=== PATIENT | male | born 1995 | race Caucasian/White ===

== ENCOUNTER 2016-07-12 13:36 | Inpatient (IN) | payer OTHER ==
--- NOTE | ~2016-07-12 | CO ---
Unit #: [id number] #: [id number] Patient: TARUN VELASQUEZ [id number] [address] [place], [place] [address] [id number] I MR#: [id number] NAME: TARUN VELASQUEZ ROOM: 469 Age: 21 Sex: M Admission Date: 07/12/2016 : 1995 Attending Physician: Gonzalo Navarro M.D. Primary Care Physician: Jaleel Otero Jr., A.P.R.N. Consultation Date: 07/13/2016 CONSULTATION REPORT BRIEF SUMMARY The patient is a 21-year-old white male who presented complaining of approximately 3 days of nausea, decreased oral intake and vomiting. He has had a similar episode of this approximately 2 years ago that required admission and spontaneous resolved without any surgical intervention. 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 He denies any hematemesis. Last bowel movement was approximately 3 to 4 days ago. He has had no fever, no chills and at present, after his NG tube was placed, he has no nausea and no abdominal pain. PAST MEDICAL HISTORY AND SERIOUS ILLNESSES As noted above. 1. He has had a history of gastroschisis. 2. History of myotonic dystrophy. PAST SURGICAL HISTORY Three abdominal surgeries as noted above for repair of his gastroschisis and reduction of the bowel. MEDICATIONS Vitamin D weekly. ALLERGIES 1. Morphine. 2. Fentanyl. TRANSFUSION No history of transfusion reaction in the past. IMMUNIZATIONS Up to date. FAMILY HISTORY Noncontributory. SOCIAL HISTORY The patient is single. Nonsmoker, nondrinker. Has a normal good appetite with no recent weight change. He has always been thin most of his life. REVIEW OF SYSTEMS A 12-system review has been performed which is unremarkable except that in the present illness. Unit #: [id number] #: [id number] Patient: TARUN VELASQUEZ PHYSICAL EXAMINATION VITAL SIGNS: Afebrile. Vital signs are normal. GENERAL: Well-developed, thin 21-year-old white male in no acute distress. HEENT: Unremarkable. NECK: Supple. CHEST: Equal bilateral expansion with bilateral equal breath sounds. LUNGS: Clear bilaterally. HEART: Regular rhythm without murmurs, gallops. ABDOMEN: Soft, scaphoid without mass or organomegaly. No gross abdominal distention. No guarding or rebound. Active bowel sounds present. No evidence of ascites or hernias. There is a large scar in the central portion of his abdomen from his previous gastroschisis surgery. EXTREMITIES: Full range of motion without limitation. There is no evidence of peripheral edema. BACK: No CVA tenderness. NEUROLOGIC: He does have some tonic and clonic contraction of the muscles at times. DIAGNOSTIC STUDIES LABORATORY: Values are basically normal. BUN was minimally elevated at 26 with a normal serum creatinine. IMAGING: CT scan revealed evidence of probable small bowel obstruction in the proximal jejunum with the colon shifted in the left of the abdomen. IMPRESSION The patient has recurrent small bowel obstruction secondary to adhesions. He is much better after placement of NG tube. The plan will be to observe him for the next 24 hours and repeat his x-rays and make a decision whether he will need surgery or not. This has been discussed with him and his mother and they agree with this approach. Dictated by... Artem Duggan Jr., M.Gray. IVETH/ernesto TD: 07/13/2016 22:04 JOB #: [id number] CONSULTATION REPORT Page 1 of 1 X Artem Duggan MD X CONSULTATION REPORT
--- NOTE | ~2016-07-12 | DS ---
Unit #: [id number] #: [id number] Patient: TARUN VELASQUEZ [id number] [place], [place] [address] [id number] I MR#: [id number] NAME: TARUN VELASQUEZ. ROOM: 469 Age: 21 Sex: M Admission Date: 07/12/2016 : 1995 Discharge Date: 07/14/2016 Attending Physician: Gonzalo Navarro M.D. Referring Physician: Jaleel Otero Jr., Gabbie.P.RJessie Primary Care Physician: Medardo Corbett Jr.POrtizRJessie DISCHARGE SUMMARY DISCHARGE DIAGNOSES 1. High-grade small bowel obstruction. 2. History of gastroschisis, requiring surgeries. 3. History of myoclonic dystrophy. 4. Tobacco abuse. HOSPITAL COURSE The patient is a 21-year-old male, who presented to [facility] Emergency Department with some abdominal pain that started the day prior. He had 4 to 5 episodes of nonbloody emesis. In the emergency department, CT of the abdomen and pelvis performed and showed high-grade small bowel obstruction. The patient was admitted and surgery consult obtained. The patient had an NG-tube placed, and this helped greatly. He was made n.p.o. and treated with antiemetics. At the time of discharge, the patient had spent the day without symptoms. He was started on diet which was advanced to regular without difficulty. As a result, the patient is requesting a discharge home. DISCHARGE MEDICATIONS Vitamin D. FOLLOWUP The patient should follow up with [facility] as needed. DIET Regular diet as tolerated. Dictated by... Gonzalo Navarro M.D. FAUSTINA/johnl TD: 07/15/2016 01:00 JOB #: [id number] Unit #: [id number] #: [id number] Patient: TARUN VELASQUEZ DISCHARGE SUMMARY Page 1 of 1 X Gonzalo Navarro MD X DISCHARGE SUMMARY
--- NOTE | ~2016-07-12 | CT2 ---
[facility] A Service of [facility] & [facility] RADIOLOGY TEXT RESULTS PATIENT: TARUN VELASQUEZ LOCATION: [facility] 469- : [birth year] UNIT #: [id number] AGE: [address]: Gonzalo Navarro MD SEX: M ORDER DR: [id number] [facility] [address]. [place], [place] [address] [id number] E MR#: [id number] Acc #: [id number] NAME: TARUN VELASQUEZ. : 1995 SEX: M STUDY DATE/TIME: 07/12/2016 14:37 UNIT: PAU ROOM: STUDY DESCRIPTION: CT Abd and Pelv W Cont Attending Physician: Marck Espinal M.D. Referring Physician: Jaleel Otero Jr., A.P.R.N. Ordering Physician: Marck Espinal M.D. Primary Care Physician: Jaleel Otero Jr., A.P.R.N. MEDICAL IMAGING REPORT This report is preliminary unless electronic signature is present EXAM CT abdomen and pelvis HISTORY Abdomen pain, vomiting since 07/11/2016. History of myotonic dystrophy, gastroschisis. 3 abdominal surgeries. TECHNIQUE This CT exam was performed with one or more of the following radiation dose reduction techniques: automatic exposure control, adjustment of mA and/or kV according to patient size, and iterative reconstruction. FINDINGS CT abdomen and pelvis performed with intravenous administration of 100 mL Isovue-370. Enteric contrast not administered. Comparison 06/10/2014. The lung bases are clear. Inferior heart and pericardium unremarkable. The liver, gallbladder, spleen, pancreas, adrenal glands, kidneys unremarkable. CT Pelvis: No inguinal adenopathy. The urinary bladder largely decompressed. No fluid collections in the pelvis. No pelvic or retroperitoneal adenopathy. Distal esophagus unremarkable. There is mild gastric distension with air and fluid. The patient has abnormal orientation of small bowel and colon. 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 A significant portion of the colon is in the mid to left hemiabdomen and in the pelvis approximately 3.9 cm in diameter. Multiple air-fluid levels are seen. The transition zone is in the lateral left hemiabdomen at and just inferior to the level of the spleen where there is a long segment of decompressed small bowel with associated adjacent inflammatory fat stranding and haziness and a small amount of adjacent fluid. There is no drainable fluid collection. This decompressed small bowel is believed to be in the egw-yl-cjjkab ileum. [facility] A Service of [facility] RADIOLOGY TEXT RESULTS PATIENT: TARUN VELASQUEZ LOCATION: [facility] [id number] : [birth year] UNIT #: [id number] AGE: [address]: Gonzalo Navarro MD SEX: M ORDER DR: The remainder of the small bowel is decompressed. Etiology for small bowel obstruction, given patient history, most likely adhesions. There is no compelling evidence of small bowel volvulus or internal hernia. In the area of decompressed bowel described above, there may be some minimal wall thickening. The adjacent inflammatory change and fluid might reflect an underlying intrinsic infectious or inflammatory enteritis causing the obstruction. Alternatively, the inflammatory change suggested in the decompressed small bowel may be secondary to the obstruction itself. The findings could be further evaluated by repeat CT examination with administration of enteric contrast or standard small bowel follow-through when clinically appropriate for the patient. There is no free air. There is moderate stool burden throughout the colon without pathologic colonic dilatation. No colonic inflammatory change. The vascular structures appear normal in caliber. Postoperative changes anterior abdominal wall. The bony structures are unremarkable. IMPRESSION 1. Findings discussed with Dr. Espinal at time of this dictation. High-grade small bowel obstruction. Abnormally dilated loops of small bowel measuring up to about 3.9 cm in diameter. The transition zone is in the lateral left hemiabdomen at and just inferior to the level of the spleen. This is felt to be in the zwm-qk-apeufy ileum. The decompressed loops of smy-cm-scgbjv ileum show some mild enhancement, borderline wall thickening, and some adjacent mesenteric inflammatory change and trace amounts of adjacent fluid. Whether there is an intrinsic underlying infectious or inflammatory enteritis in this decompressed xos-yy-ebwafc small bowel or whether the inflammatory change is a consequence of the obstruction is unclear on basis of this examination. The more proximal small bowel is abnormally dilated up to about 3.9 cm in diameter with multiple air-fluid levels. 2. Moderate stool burden in the colon without pathologic colonic dilatation. No colonic inflammatory change is seen. 3. Again noted is unusual orientation of the bowel probably falling within spectrum of bowel malrotation as described on prior examination. The patient's bowel is predominately in the central and left paracentral abdomen and pelvis. Cecum and ileocecal valve are in the left lower quadrant/left hemipelvis. 4. No free air. No drainable fluid collection. 5. Small bowel best further evaluated when clinically appropriate for the patient with routine small bowel follow-through or repeat CT examination using enteric contrast. 6. Gallbladder, pancreas, kidneys unremarkable. 7. Appendix not identified. Dictated by... Ronan Salazar M.D. THIS IS AN ELECTRONICALLY VERIFIED REPORT [facility] A Service of [facility] & [facility] RADIOLOGY TEXT RESULTS PATIENT: TARUN VELASQUEZ LOCATION: [place] [address] : [birth year] UNIT #: [id number] AGE: [address]: Gonzalo Navarro MD SEX: M ORDER DR: Ronan Salazar M.D. at 07/13/2016 5:55 PM NERI/gus TD: 07/12/2016 16:05 JOB #: [id number] MEDICAL IMAGING REPORT Page 1 of 1 COPY
--- NOTE | ~2016-07-12 | CR6 ---
[facility] A Service of [facility] & [facility] RADIOLOGY TEXT RESULTS PATIENT: TARUN VELASQUEZ LOCATION: [facility] [id number] : [birth year] UNIT #: [id number] AGE: [address]: Amada Toney MD SEX: M ORDER DR: [id number] [facility] [address]. [place], [place] [address] [id number] E MR#: [id number] Acc #: [id number] NAME: TARUN VELASQUEZ. : 1995 SEX: M STUDY DATE/TIME: 07/12/2016 16:32 UNIT: [facility] ROOM: STUDY DESCRIPTION: CR Abdomen Portable Sng View Attending Physician: Marck Espinal M.D. Referring Physician: Jaleel Otero Jr., A.P.R.N. Ordering Physician: Marck Espinal M.D. Primary Care Physician: Jaleel Otero Jr., A.P.R.N. MEDICAL IMAGING REPORT This report is preliminary unless electronic signature is present EXAM KUB 07/12/2016 INDICATIONS NG tube placement. Abdominal pain and vomiting for 2 days. Small bowel obstruction is seen on CT today. FINDINGS Supine view the abdomen was obtained. Tip of an NG tube is positioned in the stomach. Small bowel obstruction is present as seen on the CT today. There is some excreted IV contrast in the renal collecting systems and ureters. Dictated by... Nicola Robles Jr., M.D. THIS IS AN ELECTRONICALLY VERIFIED REPORT Nicola Robles Jr., M.D. at 07/12/2016 6:17 PM MONICA/kyle TD: 07/12/2016 16:53 JOB #: [id number] MEDICAL IMAGING REPORT Page 1 of 1 COPY
--- NOTE | ~2016-07-12 | HP ---
Unit #: [id number] #: [id number] Patient: TARUN VELASQUEZ [id number] [address] [place], [place] [address] [id number] E MR#: [id number] NAME: TARUN VELASQUEZ ROOM: Age: 21 Sex: M Admission Date: 07/12/2016 : 1995 Attending Physician: Marck Espinal M.D. Referring Physician: Jaleel Otero Jr., Adenike. Primary Care Physician: Jaleel Otero Jr., Cristhian HISTORY AND PHYSICAL CHIEF COMPLAINT Vomiting, abdominal pain. HISTORY OF PRESENT ILLNESS The patient is a 21-year-old male with past medical history of gastroschisis, myotonic dystrophy, who presented to the emergency department for evaluation of the above. The patient states that he has been having abdominal pain since yesterday. He describes the pain as "pain." There are no exacerbating or alleviating factors. He states that the pain is similar to when he had a bowel obstruction in the past. He has had four to five bouts of nonbloody emesis within the past 24 hours. He is not sure exactly when he had his last bowel movement, he thinks it was possibly four days ago. He did pass gas on 07/10/2016. He denies any urinary symptoms. In the emergency department, a CT of the abdomen and pelvis was done and showed findings concerning for high-grade small bowel obstruction. No free air was noted. He was given 1 liter of normal saline as well as 20 mg of Bentyl, 30 mg of Toradol and 4 mg of Zofran in the emergency department. He is being admitted to [facility] for evaluation and further treatment. PAST MEDICAL HISTORY 1. Admission to [facility] 06/07/2014 for community-acquired pneumonia. 2. History of gastroschisis as a requiring three surgeries. 3. Myotonic dystrophy. ALLERGIES 1. Morphine. 2. Fentanyl. HOME MEDICATIONS Vitamin D. SOCIAL HISTORY The patient lives with his mother. He smokes a few cigarettes daily. He denies alcohol or illicit drug use. FAMILY HISTORY Notable for his mother having a myocardial infarction at the age of 30. REVIEW OF SYSTEMS Unit #: [id number] #: [id number] Patient: TARUN VELASQUEZ A complete review of systems was negative except as indicated in the HPI. PHYSICAL EXAMINATION VITAL SIGNS: Temperature 97.4, pulse 131, respirations 16, blood pressure 98/51. Most recent pulse and blood pressure 68 and 107/57 respectively. GENERAL: The patient is a male who is awake and alert. HEENT: Head is atraumatic. Mucous membranes are dry. NECK: Supple. Trachea is midline. LUNGS: Clear to auscultation bilaterally with no increased work of breathing. HEART: Regular rate and rhythm. ABDOMEN: Diffusely tender to palpation. Bowel sounds are somewhat decreased. EXTREMITIES: Nontender with no pedal edema. NEUROLOGIC: Patient is awake and alert. He follows commands. PSYCHIATRIC: Mood and affect are normal. Patient is cooperative. SKIN OF EXAMINED AREAS: Warm and dry. DIAGNOSTIC STUDIES LABORATORY: Comprehensive metabolic panel notable for alkaline phosphatase 98, amylase 17, lipase 15. Complete blood count notable for hemoglobin 17.8, hematocrit 53.4. Urinalysis notable for trace leukocyte esterase, 1+ protein. Urine toxicology screen is negative. IMAGING: CT of the abdomen and pelvis shows high-grade small bowel obstruction with no free air. Chest x-ray is negative. ASSESSMENT The patient is a 21-year-old male with: 1. High-grade small bowel obstruction. 2. History of gastroschisis requiring several surgeries. 3. History of myotonic dystrophy. 4. Tobacco abuse. PLAN 1. Admit to med-surg. 2. Normal saline at 125 mL per hour. 3. N.p.o. 4. NG tube to low wall suction. 5. P.r.n. Toradol. 6. P.r.n. Zofran. 7. Consult [facility] regarding small bowel obstruction. 8. SCDs for DVT prophylaxis. 9. Repeat labs in the morning. 10. Additional workup and consultants based on above. Dictated by Amada Toney M.D. Unit #: [id number] #: [id number] Patient: TARUN VELASQUEZ TOMAS/ernesto TD: 07/12/2016 17:01 JOB #: [id number] HISTORY AND PHYSICAL Page 1 of 1 X Amada Toney MD X HISTORY AND PHYSICAL
--- NOTE | ~2016-07-12 | A ---
[facility] DATE: 07/14/16 Patient: TARUN Castellano VELASQUEZ Physician: JOAQUÍN Address: [address] [place] [address] Room/Bed: [address] [place] [address], Zip: [place] [address] Admit Date: 07/12/16 Date of : [birth year] Height: 5 9 Weight: 114 51.7 NUTRITIONAL ASSESSMENT: REASON: LOW BMI PT IS 21 Y.O. MALE ADMITTED FOR SBO 2' ADHESIONS PMH: MYOTONIC DYSTROPHY, GASTROSCHISIS, MULTIPLE ABD SURGERIES, SMOKER Anthropometrics: 5'9", WT: 114# (52 KG), BMI: 16.8, 71%IBW Labs: ALB: 3.4, LIPASE: 15 Meds: NACL, ZOFRAN, PHENERGAN I/O & Bowel function: 1525/994 Skin Integrity: TATTOOS OBSERVED Estimated Nutrition Needs: INCREASED NUTRIENT NEEDS 2' PT UNDERWEIGHT, PMH Assessment: CHART REVIEWED AND EVENTS NOTED. PT SEEN FOR LOW BMI. PT REPORTS DECREASED PO INTAKE 2' DECREASED APPETITE D/T N/V PAST 3 DAYS. PT AND MOTHER AT BEDSIDE REPORT PT NORMALLY TO HAVE GOOD PO INTAKE AND APPETITE. MOTHER ADDS THAT PT HAS ALWAYS BEEN SMALL, BUT NOTES HE HAS LOST ~5# PAST MONTH/4% SEVERE WEIGHT LOSS NOTED. THIS RD ENCOURAGED ADEQUATE KCAL AND PROTEIN INTAKE, PT AGREED TO ENSURE SHAKES BID. PT AND MOTHER REQUESTED DIET PLAN FOR WHEN PT IS D/C'D. RD PROVIDED LOW FIBER (MODERATE) AND SLOWLY INCREASE FIBER INTAKE DIET EDUCATION. PT AND MOTHER REPORTED NO DIET QUESTIONS. PLANS IN PLACE FOR NGT TO BE D/C'D AND POSSIBLE D/C HOME FOR PT TOLERATES PO INTAKE AND SBO RESOLVED. RD TO FOLLOW. Dx: INADEQUATE PROTEIN-ENERGY INTAKE R/T DECREASED APPETITE AEB PT REPORT ABOVE, LOW BMI OF 16.8, 71%IBW, SEVERE 5% WEIGHT LOSS NOTED. -UNDERWEIGHT R/T PMH AEB LOW BMI NOTED 16.8, 71%IBW. Intervention: 1. REGULAR DIET 2. VANILLA ENSURE SHAKES BID Monitoring, Evaluation and Goals: 1. PO INTAKE; PROVIDE AND CONSUME ADEQUATE NUTRITION W/NO C/O N/V/D (PO>50%) 2. WEIGHTS; PROMOTE GRADUAL WEIGHT GAIN; PREVENT FURTHER WEIGHT LOSS 3. GI; PROMOTE REGULAR GI FUNCTION MONITOR: [facility] DATE: 07/14/16 Patient: TARUN D EVA Physician: JOAQUÍN Address: [address] [place] [address] Room/Bed: [address] [place] [address], Zip: [place] [address] Admit Date: 07/12/16 Date of : [birth year] Height: 5 9 Weight: 114 51.7 -PO INTAKE/APPETITE -WEIGHTS -SUPPLEMENT INTAKE Recommendations: 1. PLEASE ORDER VANILLA ENSURE SHAKES BID W/MEALS 2. PLEASE WEIGH PT q 3 DAYS FOR MONITORING PURPOSES 3. ENCOURAGE ADEQUATE KCAL AND PROTEIN INTAKE RD WILL F/U PER PROTOCOL PT IS MODERATELY COMPROMISED Respectfully, STEFFANIE VU MS, RD, LD [facility] cc: client file
--- NOTE | ~2016-07-12 | CR72 ---
[facility] A Service of [facility] & [facility] RADIOLOGY TEXT RESULTS PATIENT: TARUN VELASQUEZ LOCATION: [facility] : [birth year] UNIT #: [id number] AGE: [address]: Marck Espinal MD SEX: M ORDER DR: [id number] [facility] [address] [place], [place] [address] [id number] E MR#: [id number] Acc #: [id number] NAME: TARUN VELASQUEZ. : 1995 SEX: M STUDY DATE/TIME: 07/12/2016 13:21 UNIT: [facility] ROOM: STUDY DESCRIPTION: CR Chest Single View Portable Attending Physician: Marck Espinal M.D. Referring Physician: Jaleel Otero Jr., A.P.R.N. Ordering Physician: Marck Espinal M.D. Primary Care Physician: Jaleel Otero Jr., A.P.R.N. MEDICAL IMAGING REPORT This report is preliminary unless electronic signature is present EXAM Portable chest 07/12 INDICATIONS Vomiting and shortness of air that started yesterday. COMPARISON 06/08/2014 FINDINGS A single AP portable view of the chest shows both lungs to be clear. The heart is normal in size. The mediastinal contour is normal. No significant bone abnormalities are seen. IMPRESSION Normal portable chest. Dictated by... Nicola Robles Jr., M.D. THIS IS AN ELECTRONICALLY VERIFIED REPORT Nicola Robles Jr., M.D. at 07/12/2016 2:24 PM MONICA/sterling TD: 07/12/2016 13:52 JOB #: [id number] MEDICAL IMAGING REPORT Page 1 of 1 COPY
--- NOTE | ~2016-07-12 | CR4 ---
[facility] A Service of [facility] & [facility] RADIOLOGY TEXT RESULTS PATIENT: TARUN VELASQUEZ LOCATION: [facility] 46- : [birth year] UNIT #: [id number] AGE: [address]: Gonzalo Navarro MD SEX: M ORDER DR: [id number] [facility] [address]. [place], [place] [address] [id number] I MR#: [id number] Acc #: [id number] NAME: TARUN VELASQUEZ. : 1995 SEX: M STUDY DATE/TIME: 07/13/2016 17:04 UNIT: [facility] ROOM: Count includes the [facility] STUDY DESCRIPTION: CR Abdomen Flat Upright or Dec Attending Physician: Gonzalo Navarro M.D. Referring Physician: Jaleel Otero Jr., A.P.R.N. Ordering Physician: Artem Duggan Jr., M.D. Primary Care Physician: Jaleel Otero Jr., A.P.R.N. MEDICAL IMAGING REPORT This report is preliminary unless electronic signature is present EXAM Abdomen flat and upright HISTORY Abdomen pain since yesterday. FINDINGS Two of the abdomen demonstrate the bowel gas pattern is normal. No bowel dilatation or displacement. No free air. NG tube tip in the left upper quadrant at the level of the mid stomach 12 cm beyond the EG junction. Interval resolution of mild small bowel dilatation compared to abdomen x-ray yesterday. IMPRESSION NG tube tip at the level of the mid gastric body in the left upper quadrant. No bowel dilatation or free air. Interval resolution of mild small bowel dilatation compared to yesterday. Dictated by... Andrei Abraham M.D. THIS IS AN ELECTRONICALLY VERIFIED REPORT Andrei Abraham M.D. at 07/14/2016 12:04 AM DERECK/chelly TD: 07/13/2016 20:36 JOB #: [id number] MEDICAL IMAGING REPORT Page 1 of 1 COPY
[~2016-07-12 13:36] MED LIST: FLAGYL PO; LEVAQUIN750 MG PO; MOTRIN600 MG PO; NO MEDICATIONS; PENICILLIN; ZOFRAN PO
[2016-07-12 13:49] LABS: BASOPHIL% 0.2 % (0-2.5); EOSINOPHIL# 0.1 X10e3 (0-0.7); EOSINOPHIL% 1.2 % (0.0-7.0); HEMATOCRIT 53.4 % (38.0-50.0); HEMOGLOBIN 17.8 gm/dL (13.0-16.0); LYMPHOCYTE# 1.4 X10e3 (1.0-3.5); LYMPHOCYTE% 15.6 % (17.0-45.0); MEAN CELL VOLUME 84.4 FL (83-96); MEAN CORPUSCULAR HEMOGLOBIN 28.1 PG (28-34); MEAN CORPUSCULAR HGB CONC 33.4 g/dL (30-36); MEAN PLATELET VOLUME 8.1 FL (6.5-11.5); MONOCYTE# 1.5 X10e3 (0-1.0); MONOCYTE% 17.2 % (3.0-12.0); NEUTROPHIL# 5.9 X10e3 (1.5-7.1); NEUTROPHIL% 65.8 % (40-75); PLATELET COUNT 169 X10e3 (140-420); RED BLOOD COUNT 6.33 X10e (3.90-5.60); RED CELL DISTRIBUTION WIDTH 13.4 % (11.0-15.5)
[2016-07-12 13:53] LABS: DIFF IND NO
[2016-07-12 14:10] LABS: ALBUMIN SERUM 4.9 g/dL (3.5-5.0); BILIRUBIN, DIRECT 0.3 mg/dL (0.0-0.2); BILIRUBIN,INDIRECT 1.3 mg/dL (0.0-0.9); BILIRUBIN,TOTAL 1.6 mg/dL (0.2-2.0); BUN/CREATININE RATIO 18.46; CALCIUM SERUM 9.6 mg/dL (8.4-10.2); CREATININE SERUM 1.3 mg/dL (0.6-1.4); GLOM FILT RATE Estimated 77.5 mL/min (>60)
[2016-07-12 14:46] LABS: URINE SOURCE CLEAN CATCH
[2016-07-12 14:55] LABS: URINE APPEARANCE CLEAR; URINE BLOOD NEG (NEG); URINE COLOR DK YELLOW; URINE GLUCOSE NEG (NEG); URINE KETONE NEG (NEG); URINE LEUKOCYTE ESTERASE TRACE (NEG); URINE NITRATE NEG (NEG); URINE PH 5.5 (5-8); URINE PROTEIN 1+ (NEG); URINE SPECIFIC GRAVITY 1.036 (1.003-1.035)
[2016-07-12 14:57] LABS: URBCS1 AUWI 0-2 /[HPF] (0-2); URINE BACTERIA AUWI NEG (NEGATIVE); URINE SQUAMOUS EPITHELIAL CELL OCC /[HPF]
[2016-07-12 15:16] LABS: AMPHETAMINE NEG (NEG); BARBITURATES NEG (NEG); BENZODIAZEPINES NEG (NEG); COCAINE NEG (NEG); MARIJUANA NEG (NEG); OPIATES NEG (NEG); TRICYCLIC ANTIDEPRESSANTS NEG (NEG); U METHADONE NEG (NEG)
[2016-07-12 15:17] LABS: CULTURE INDICATED? NO
[2016-07-13 03:46] LABS: BASOPHIL% 0.4 % (0-2.5); EOSINOPHIL# 0.1 X10e3 (0-0.7); EOSINOPHIL% 2.4 % (0.0-7.0); HEMATOCRIT 44.9 % (38.0-50.0); LYMPHOCYTE# 1.3 X10e3 (1.0-3.5); LYMPHOCYTE% 22.3 % (17.0-45.0); MEAN CELL VOLUME 85.1 FL (83-96); MEAN CORPUSCULAR HEMOGLOBIN 28.2 PG (28-34); MEAN CORPUSCULAR HGB CONC 33.1 g/dL (30-36); MEAN PLATELET VOLUME 8.1 FL (6.5-11.5); MONOCYTE# 0.9 X10e3 (0-1.0); NEUTROPHIL# 3.5 X10e3 (1.5-7.1); NEUTROPHIL% 59.9 % (40-75); PLATELET COUNT 126 X10e3 (140-420); RED BLOOD COUNT 5.28 X10e (3.90-5.60); RED CELL DISTRIBUTION WIDTH 13.4 % (11.0-15.5); WHITE BLOOD COUNT 5.8 X10e3 (4.0-10.5)
[2016-07-13 04:18] LABS: ALBUMIN SERUM 3.8 g/dL (3.5-5.0); BILIRUBIN,TOTAL 1.3 mg/dL (0.2-2.0); CALCIUM SERUM 8.5 mg/dL (8.4-10.2); CREATININE SERUM 1.3 mg/dL (0.6-1.4); GLOM FILT RATE Estimated 77.5 mL/min (>60); POTASSIUM 4.1 mmol/L (3.5-5.1); PROTEIN TOTAL SERUM 6.4 g/dL (6.0-8.3)
[2016-07-13 04:45] LABS: HEMOGLOBIN 14.9 gm/dL (13.0-16.0)
[2016-07-13 04:46] LABS: DIFF IND NO
[2016-07-14 05:34] LABS: BASOPHIL% 0.4 % (0-2.5); EOSINOPHIL# 0.1 X10e3 (0-0.7); EOSINOPHIL% 2.2 % (0.0-7.0); HEMATOCRIT 40.9 % (38.0-50.0); HEMOGLOBIN 13.8 gm/dL (13.0-16.0); LYMPHOCYTE% 19.1 % (17.0-45.0); MEAN CELL VOLUME 82.9 FL (83-96); MEAN CORPUSCULAR HGB CONC 33.8 g/dL (30-36); MEAN PLATELET VOLUME 7.6 FL (6.5-11.5); MONOCYTE# 0.6 X10e3 (0-1.0); MONOCYTE% 11.2 % (3.0-12.0); NEUTROPHIL# 3.6 X10e3 (1.5-7.1); NEUTROPHIL% 67.1 % (40-75); PLATELET COUNT 123 X10e3 (140-420); RED BLOOD COUNT 4.93 X10e (3.90-5.60); WHITE BLOOD COUNT 5.4 X10e3 (4.0-10.5)
[2016-07-14 05:42] LABS: DIFF IND NO
[2016-07-14 06:14] LABS: ALBUMIN SERUM 3.4 g/dL (3.5-5.0); BILIRUBIN,TOTAL 0.9 mg/dL (0.2-2.0); BUN/CREATININE RATIO 16.66; CALCIUM SERUM 8.4 mg/dL (8.4-10.2); CREATININE SERUM 0.9 mg/dL (0.6-1.4); GLOM FILT RATE Estimated 120.8 mL/min (>60); POTASSIUM 3.9 mmol/L (3.5-5.1); PROTEIN TOTAL SERUM 5.7 g/dL (6.0-8.3)
== END 2016-07-14 17:32 | disposition home or self-care (01) | DRG 389 ==
LOC: CED 13:36 → CEDOF 16:40 → C4C 21:29
PROVIDERS: Emergency Medicine; Family Medicine; Surgery
PROC: 0D9670Z Drainage of Stomach with Drainage Device, Via Natural or Artificial Opening (ICD-10-PCS; principal; 2016-07-12)
DX: K56.5 Intestinal adhesions [bands] with obstruction (postinfection) (principal); E46 Unspecified protein-calorie malnutrition; G71.11 Myotonic muscular dystrophy; Z68.1 Body mass index [BMI] 19.9 or less, adult; F17.210 Nicotine dependence, cigarettes, uncomplicated
CPT/HCPCS: 36415; 71010; 74000; 74020; 74177; 80048; 80053; 80076; 80307; 81003; 82150; 83690; 85025; 96361; 96372; 96374; 99285; J0500; J1885; J2405; Q9967